=== PATIENT | male | born 1950 | race Caucasian/White ===

== ENCOUNTER → 2017-07-30 | Outpatient (CLI) | payer OTHER | LOC: FCPNEURO 20:00 | PROVIDERS: ATTEND Psychiatry & Neurology Sleep Medicine | DX: G47.33 Obstructive sleep apnea (adult) (pediatric) (principal); G47.31 Primary central sleep apnea ==

== ENCOUNTER → 2017-08-25 | Outpatient (CLI) | payer OTHER | LOC: CIMAGING 15:52 | PROVIDERS: ATTEND Family Medicine | DX: R22.1 Localized swelling, mass and lump, neck (principal); M54.2 Cervicalgia | CPT/HCPCS: 76536-PO ==

== ENCOUNTER 2018-01-31 20:57 | Emergency (ER) | payer OTHER ==
[2018-01-31] MEDS ORDERED: PANTOPRAZOLE SODIUM 40 MG TAB PO ONE (21:38)
[2018-01-31] MEDS ORDERED: ACETAMINOPHEN 325 MG TAB PO ONE (21:38)
[2018-01-31 21:58] LABS: PLATELET COUNT 241 10^3/uL (150-400)
--- NOTE | 2018-01-31 21:59 | EDPHY ---
H & P Time Seen by Provider: 01/31/18 21:15 HPI/ROS: This patient is anxious about throat and neck pain. He reports 2 years of neck pain and thinks this may be musculoskeletal as he has some bulging discs in his upper back but over the past 2 days he has had associated throat pain 8/10 intensity left side more than right side he reports that he also has a feeling of air hunger due to feeling of throat swelling. He goes on to report significant GERD symptoms and describes symptoms of esophageal stricture reporting that is hard to get solid foods to go down and seems to get stuck part way down his esophagus when he swallows he has been having a soft diet over the past few days. He reports that he sitting upright in chair to decrease the symptoms of throat pain air hunger. He has been taking over-the- counter medications-ibuprofen Tylenol with minimal improvement but has not taken any recently. He reports that he takes Tums and occasional ranitidine for his GERD symptoms but is sporadic about taking his medications. He is concerned that he may have a thyroid problem contributing to symptoms. He continues on his dose of levothyroxine-112.5 mcg daily that is been on for quite some time. He came in by private vehicle for evaluation of the symptoms. [place] [facility] [place] negative rapid st[place] but no other workup at that time. ROS: Constitutional: No high fevers or chills. HEENT: Head left ear pain last night that was sharp but brief in duration is now resolved. No other HEENT complaints except chronic nasal congestion. Pulmonary: No significant cough. No shortness of breath other than the feeling of air hunger that he attributes to a feeling of narrowing in his throat. Cardiovascular: No chest pains. GI: No abdominal pain. No nausea or vomiting. : No complaints integumentary: He reports"petechia a"there longstanding him but reports more recently. I suspect she has report referring to small red nevi that are prominent on his arms. He reports this is familial. 10 point ROS is otherwise negative. Past Medical/Surgical History: Hypothyroid Bulging discs and thoracic spine Social History: His girlfriend broke up 2 months ago but reports this was a mutual decision because she lives [place] and he did not 1 moved [place]. Nonsmoker No chewing tobacco No recreational drugs. No alcohol Smoking Status: Never smoked Physical Exam: Vital signs are normal with exception of pulse of 110 and hypertension 136/100 General Appearance: Alert, no distress. Eyes: Pupils equal and round no pallor or injection. ENT, Mouth: Mucous membranes moist. Oropharynx: Patient has left posterior pharyngeal erythema and mild swelling of the left tonsil without exudates, dysphonia drooling or stridor. Right external canal and TM are clear left external canal and TM are clear patient seems to have slightly more prominence to the angle of the jaw on the left than the right but no tenderness at that site. He does have submandibular tenderness the left side without submental swelling. No sinus tenderness to percussion. Neck: No goiter. Supple with no meningismus. Mild paraspinous muscular tenderness is present bilaterally. Respiratory: There are no retractions, lungs are clear to auscultation. Cardiovascular: Regular rate and rhythm. No murmur gallop rub Gastrointestinal: Abdomen is soft and nontender, no masses, bowel sounds normal. Neurological: GCS 15. Cranial nerves 2-12 grossly intact Skin: Warm and dry, no rashes. Small red nevi on extremities. Extremities are symmetrical, full range of motion. Psychiatric: Patient is anxious. Mood and affect are otherwise normal DIFFERENTIAL DIAGNOSIS: After history and physical exam differential diagnosis was considered for strep pharyngitis, viral pharyngitis, GERD with esophagitis and likely esophageal stricture, potential pharyngeal injury from significant GERD, neoplasm, Constitutional: Initial Vital Signs Temperature (C) 37.3 C 01/31/18 21:11 Heart Rate 110 H 01/31/18 21:11 Respiratory Rate 16 01/31/18 21:11 Blood Pressure 136/100 H 01/31/18 21:11 O2 Sat (%) 96 01/31/18 21:11 O2 Delivery Mode Room Air Allergies/Adverse Reactions: No Known Allergies Allergy (Verified 01/31/18 21:14) Home Medications: Medication Instructions Recorded Aspirin [Aspirin 81mg] 0 mg PO 01/14/12 LEVOTHYROXINE SODIUM 0 mcg PO 01/14/12 Pantoprazole Sodium [Protonix 40mg 40 mg PO DAILY #30 tab 01/31/18 (*)] Penicillin V Potassium [Penicillin 500 mg PO BID #20 tab 01/31/18 VK] traMADol [Ultram 50 mg (*)] 50 - 100 mg PO Q4 PRN #12 tab 01/31/18 MDM/Departure - MDM Diagnostics: Soft tissue neck: No evidence of significant epiglottitis or other soft tissue swelling by my interpretation. Imaging: I viewed and interpreted images myself Medications Given: Discontinued Medications Acetaminophen (Tylenol) 975 mg PO EDNOW ONE Stop: 01/31/18 21:39 Last Admin: 01/31/18 21:51 Dose: 975 mg Pantoprazole Sodium (Protonix) 40 mg PO EDNOW ONE Stop: 01/31/18 21:39 Last Admin: 01/31/18 21:51 Dose: 40 mg Penicillin V Potassium (Pen Vk 250 Mg Prepack#6) 1 btl TAKEHOME EDNOW ONE PRN Reason: Protocol Stop: 01/31/18 22:50 Last Admin: 01/31/18 23:12 Dose: 1 btl Tramadol HCl (Ultram) 100 mg PO EDNOW ONE Stop: 01/31/18 23:02 Last Admin: 01/31/18 23:12 Dose: 100 mg ED Course/Re-evaluation: Tylenol p.o. Penicillin p.o. Studies: CBC normal with slight elevation of neutrophils and differential, basic metabolic panel normal, rapid strep is negative Discussion: Patient presents with pharyngitis with pain and also feeling of airway narrowing and anxiety. Soft tissue neck reveals no evidence of significant stricture rinse clinically does not have stridor other clinical evidence of suggest significant airway compromise. He does some to have significant GERD and likely esophagitis with potential esophageal stricture warranting follow up with Gastroenterology. Will start him on Protonix for that element. Counseled regarding his study results in the plan in some detail. I also recommended follow up with ENT if he has any ongoing neck symptoms after treatment of his current pharyngitis. - Depart Disposition: Home, Routine, Self-Care Clinical Impression: Neck pain Pharyngitis Qualifiers: Pharyngitis/tonsillitis etiology: unspecified etiology Qualified Code(s): J02.9 - Acute pharyngitis, unspecified GERD (gastroesophageal reflux disease) Qualifiers: Esophagitis presence: esophagitis presence not specified Qualified Code(s): K21.9 - Gastro-esophageal reflux disease without esophagitis Condition: Good Instructions: Penicillin V (By mouth), Tramadol (By mouth), Pharyngitis (ED), Gastroesophageal Reflux Disease (ED) Additional Instructions: Diagnosis: 1. Pharyngitis 2. Neck pain 3. GERD A or soft tissue neck x-ray appears normal tonight without significant narrowing the soft tissue around airway. You're TSH is quite low tonight suggesting that you may be a too high a dose of levothyroxine. We added on Free T3 & T4 (circulating thyroid hormone levels) that should be back tomorrow Plan: Penicillin antibiotic Tylenol for pain Tramadol in addition if needed for pain that prevents sleep. No driving, alcohol or come tramadol Start Protonix acid tay Make follow-up appointment with Dr. Snell [facility] for upper endoscopy given her prominent reflux symptoms and likely esophagitis and potential esophageal stricture. Also, call Dr. Ramsey-ENT specialist if he have any ongoing throat or upper neck symptoms despite treatment plan. Call your primary care physician for a follow-up appointment this week regarding you're thyroid studies. For now, plan on decreasing dose to 100 mcg a day. Return emergency department for any significant worsening despite the treatment plan. Prescriptions: Pantoprazole Sodium [Protonix 40mg (*)] 40 mg PO DAILY #30 tab Penicillin V Potassium [Penicillin VK] 500 mg PO BID #20 tab traMADol [Ultram 50 mg (*)] 50 - 100 mg PO Q4 PRN #12 tab PRN Reason: breakthrough pain Referrals: Manuel Henriquez DO [Primary Care Provider] - As per Instructions Bernarda Ramsey MD [Medical Doctor] - As per Instructions Danish Snell MD [Medical Doctor] - As per Instructions
[2018-01-31] MEDS ORDERED: PENICILLIN VK 250MG PREPACK#6 BTL TAKEHOME ONE (22:49)
[2018-01-31] MEDS ORDERED: traMADol 50 MG TAB PO ONE (23:01)
[2018-01-31 23:31] VITALS: BP 147/99
== END 2018-01-31 23:30 | disposition home or self-care (01) ==
LOC: CED 20:57
DX: J02.9 Acute pharyngitis, unspecified (principal); K21.9 Gastro-esophageal reflux disease without esophagitis; Z79.82 Long term (current) use of aspirin
CPT/HCPCS: 70360-PO; 80048-PO; 84439-PO; 84443-PO; 84481-PO